=== PATIENT | male | born 1960 | race Caucasian/White ===

== ENCOUNTER 2019-06-14 17:02 | Emergency (ER) | payer SELFPAY ==
[~2019-06-14] VITALS: Ht 172.7 cm; Wt 64.0 kg
[2019-06-14 18:12] VITALS: BP 137/84
== END 2019-06-14 19:20 | disposition home or self-care (01) ==
LOC: ER 17:51
DX: R44.0 Auditory hallucinations (principal); F20.9 Schizophrenia, unspecified; I10 Essential (primary) hypertension; F31.9 Bipolar disorder, unspecified; F14.10 Cocaine abuse, uncomplicated; F12.10 Cannabis abuse, uncomplicated; F17.210 Nicotine dependence, cigarettes, uncomplicated; Z98.890 Other specified postprocedural states
CPT/HCPCS: 99284; 99406

== ENCOUNTER 2019-10-17 09:14 | Emergency (ER) | payer SELFPAY ==
[~2019-10-17] VITALS: Ht 175.3 cm; Wt 63.0 kg
[2019-10-17 10:05] VITALS: BP 135/80
== END 2019-10-17 10:45 | disposition left against medical advice (07) ==
LOC: ER 09:25
DX: F91.8 Other conduct disorders (principal); F31.9 Bipolar disorder, unspecified; I10 Essential (primary) hypertension; F14.10 Cocaine abuse, uncomplicated; F12.10 Cannabis abuse, uncomplicated; Z85.9 Personal history of malignant neoplasm, unspecified
CPT/HCPCS: 99284

== ENCOUNTER 2019-10-19 23:39 | Emergency (ER) | payer SELFPAY ==
[~2019-10-19] VITALS: Ht 172.7 cm; Wt 64.0 kg
[2019-10-20] MEDS ORDERED: NITROGLYCERIN 0.4MG TABLET SL SL PRN (00:15)
[2019-10-20] MEDS ORDERED: ASPIRIN 81MG TABLET PO ONE (00:15)
[2019-10-20 00:37] LABS: BASOPHILS % 0.6 % (0.0-2.0); EOSINOPHILS % 2.2 % (0.0-5.0); HEMATOCRIT. 41.5 % (42.0-52.0); HEMOGLOBIN. 14.1 g/dL (14.0-18.0); LYMPHOCYTES % 34.8 % (20.0-50.0); MEAN CORPUSCULAR HEMOGLOBIN 31.2 pg (28.0-32.0); MEAN CORPUSCULAR VOLUME 92.1 fL (80.0-94.0); MEAN PLATELET VOLUME 7.3 fl (7.4-10.4); MONOCYTES % 8.8 % (2.0-8.0); NEUTROPHILS % 53.6 % (40.0-76.0); PLATELET 261 x1000/uL (130-400)
[2019-10-20 00:41] LABS: CHLORIDE 109 mEq/L (98-107)
[2019-10-20 00:45] LABS: ETHANOL BLOOD < 10 mg/dL
[2019-10-20 04:08] VITALS: BP 154/90
== END 2019-10-20 04:12 | disposition home or self-care (01) ==
LOC: ER 23:39
DX: R07.89 Other chest pain (principal); F32.9 Major depressive disorder, single episode, unspecified; E11.9 Type 2 diabetes mellitus without complications; I10 Essential (primary) hypertension; F17.200 Nicotine dependence, unspecified, uncomplicated; Z71.6 Tobacco abuse counseling
CPT/HCPCS: 36415; 71045; 80053; 80320; 82962; 83880; 84484; 85025; 93005; 99284; 99406; Z7610; G0480

== ENCOUNTER 2019-11-14 05:08 | Emergency (ER) | payer MEDICAID ==
[~2019-11-14] VITALS: Ht 177.8 cm; Wt 59.0 kg
[2019-11-14] MEDS ORDERED: LORAZEPAM 2MG/ML CPJ IV STA (05:54)
[2019-11-14] MEDS ORDERED: DIPHENHYDRAMINE 50MG/ML VIAL IV STA (05:54)
[2019-11-14 05:58] VITALS: BP 164/85
== END 2019-11-14 07:09 | disposition left against medical advice (07) ==
LOC: ER 05:08
DX: R44.0 Auditory hallucinations (principal); I10 Essential (primary) hypertension; E11.9 Type 2 diabetes mellitus without complications; Z91.14 Patient's other noncompliance with medication regimen
CPT/HCPCS: 99283

== ENCOUNTER 2019-11-23 21:06 | Emergency (ER) | payer MEDICAID ==
[~2019-11-23] VITALS: Ht 175.3 cm; Wt 64.0 kg
[2019-11-23 21:43] VITALS: BP_SYST 113
== END 2019-11-24 02:39 | disposition left against medical advice (07) ==
LOC: ER 21:06
DX: Z53.21 Procedure and treatment not carried out due to patient leaving prior to being seen by health care provider (principal); I10 Essential (primary) hypertension; F20.9 Schizophrenia, unspecified; F31.9 Bipolar disorder, unspecified

== ENCOUNTER 2019-11-24 08:24 | Emergency (ER) | payer MEDICAID ==
[~2019-11-24] VITALS: Ht 175.3 cm; Wt 63.0 kg
[2019-11-24 10:05] LABS: BASOPHILS % 0.9 % (0.0-2.0); HEMOGLOBIN. 13.6 g/dL (14.0-18.0); LYMPHOCYTES % 33.3 % (20.0-50.0); MEAN CORPUSCULAR HEMOGLOBIN 31.7 pg (28.0-32.0); MEAN CORPUSCULAR VOLUME 91.1 fL (80.0-94.0); MEAN PLATELET VOLUME 7.3 fl (7.4-10.4); MONOCYTES % 6.6 % (2.0-8.0); NEUTROPHILS % 57.2 % (40.0-76.0); PLATELET 297 x1000/uL (130-400); RED BLOOD CELL COUNT 4.28 mill/uL (4.7-6.1); RED CELL DISTRIBUTION WIDTH 14.9 % (11.6-14.6)
[2019-11-24 10:15] LABS: CHLORIDE 110 mEq/L (98-107)
[2019-11-24 10:20] LABS: ETHANOL BLOOD 79 mg/dL
[2019-11-24 10:22] LABS: CLARITY URINE CLEAR (CLEAR); COLOR URINE YELLOW (YELLOW); KETONES URINE NEGATIVE (NEGATIVE); LEUKOCYTE ESTERASE URINE NEGATIVE (NEGATIVE); NITRITE URINE NEGATIVE (NEGATIVE); OCCULT BLOOD URINE NEGATIVE (NEGATIVE); PH URINE 5.5 (4.5-8.0); PROTEIN URINE NEGATIVE (NEGATIVE); SPECIFIC GRAVITY URINE 1.002 (1.005-1.030); UROBILINOGEN URINE 0.2 E.U./dL (0.2-1.0)
[2019-11-24 10:48] LABS: CANNABINOID URINE SCREEN NEGATIVE (NEGATIVE); METHADONE URINE SCREEN NEGATIVE (NEGATIVE); OPIATES URINE SCREEN NEGATIVE (NEGATIVE)
[2019-11-24 10:49] LABS: *AMPHETAMINES SCREEN URINE NEGATIVE (NEGATIVE); *BARBITURATES SCREEN URINE NEGATIVE (NEGATIVE); *COCAINE SCREEN URINE PRESUMTIVE POSITIVE (NEGATIVE); PHENCYCLIDINE URINE SCREEN NEGATIVE (NEGATIVE)
[2019-11-24 10:50] LABS: *BENZODIAZEPINES SCREEN URINE NEGATIVE (NEGATIVE)
[2019-11-24] MEDS ORDERED: ARIPIPRAZOLE 10MG TABLET PO ONE (20:00)
[2019-11-24] MEDS ORDERED: ARIPIPRAZOLE 2MG TABLET PO NR (20:30)
[2019-11-26] MEDS ORDERED: DIPHENHYDRAMINE 50MG CAPSULE PO ONE
[2019-11-26] MEDS ORDERED: ARIPIPRAZOLE 5MG TABLET PO SCH (01:00)
[2019-11-26] MEDS ORDERED: ARIPIPRAZOLE 5MG TABLET PO NR (01:00)
[2019-11-26 17:45] VITALS: BP 95/60
== END 2019-11-26 17:45 | disposition home or self-care (01) ==
LOC: ER 08:24
DX: F29 Unspecified psychosis not due to a substance or known physiological condition (principal); F25.9 Schizoaffective disorder, unspecified; F14.10 Cocaine abuse, uncomplicated; F31.9 Bipolar disorder, unspecified; I10 Essential (primary) hypertension
CPT/HCPCS: 36415; 80053; 80305; 80320; 81003; 85025; 99285; Q0163; G0480

== ENCOUNTER 2019-11-29 17:41 | Emergency (ER) | payer MEDICAID ==
[~2019-11-29] VITALS: Ht 172.7 cm; Wt 75.0 kg
[2019-11-29 17:43] VITALS: BP 120/68
== END 2019-11-29 18:27 | disposition left against medical advice (07) ==
LOC: ER 17:41
DX: R45.1 Restlessness and agitation (principal); M54.9 Dorsalgia, unspecified; I10 Essential (primary) hypertension; F20.9 Schizophrenia, unspecified
CPT/HCPCS: 99283

== ENCOUNTER 2020-05-07 05:33 | Emergency (ER) | payer MEDICAID ==
[~2020-05-07] VITALS: Ht 172.7 cm; Wt 62.0 kg
[2020-05-07 05:55] VITALS: BP 181/99
== END 2020-05-07 06:31 | disposition left against medical advice (07) ==
LOC: ER 05:33
DX: Z53.21 Procedure and treatment not carried out due to patient leaving prior to being seen by health care provider (principal)

== ENCOUNTER 2021-05-12 23:24 | Emergency (ER) | payer MEDICAID ==
[~2021-05-12] VITALS: Ht 172.7 cm; Wt 73.0 kg
[2021-05-12 23:26] VITALS: BP 132/78
== END 2021-05-13 01:00 | disposition left against medical advice (07) ==
LOC: ER 23:24
DX: Z53.21 Procedure and treatment not carried out due to patient leaving prior to being seen by health care provider (principal)